=== PATIENT | male | born 1985 | race African-American/Black ===

== ENCOUNTER 2018-02-16 23:33 | Emergency (ER) | payer SELFPAY, OTHER ==
[2018-02-17] MEDS: CYCLOBENZAPRINE 10 MG TABLET. PO (00:29)
[2018-02-17] MEDS: HYDROcodone/APAP 5/325MG 1 TAB TABLET PO (00:29)
[2018-02-17] MEDS: DIPHTH,PERTUSS(ACELL),TET TOX 0.5 ML DISP.SYRIN. VAX IM (00:30)
== END 2018-02-17 00:54 | disposition home or self-care (01) ==
LOC: ER 02-17 00:54
DX: S60.031A Contusion of right middle finger without damage to nail, initial encounter (principal); S60.041A Contusion of right ring finger without damage to nail, initial encounter; J45.909 Unspecified asthma, uncomplicated; Z88.0 Allergy status to penicillin; Z88.8 Allergy status to other drugs, medicaments and biological substances; Z88.6 Allergy status to analgesic agent; V29.9XXA Motorcycle rider (driver) (passenger) injured in unspecified traffic accident, initial encounter; Y93.55 Activity, bike riding; Y92.89 Other specified places as the place of occurrence of the external cause; Y99.8 Other external cause status
CPT/HCPCS: 73090; 73130; 90471; 90715; 99284

== ENCOUNTER 2018-09-15 22:50 | Emergency (ER) | payer SELFPAY ==
[~2018-09-15] VITALS: Ht 180.3 cm; Wt 116.6 kg
[~2018-09-15 22:50] MED LIST: ACET-704 PO; BACI3.5O8 OP; CYCL10TA2 PO; METH4TAB2 PO
[2018-09-15 23:05] VITALS: BP 139/94
--- NOTE | 2018-09-15 23:14 | PHYS DOC ---
Past Medical History Past Medical History: Asthma Additional Past Medical Histor: PTSD Past Surgical History: No Surgical History Smoking: Cigarettes Alcohol Use: None Drug Use: Marijuana Adult General Chief Complaint Chief Complaint: ASTHMA HPI HPI Patient is a 33 year old male who presents with chief breathing. This started approximately 2000 tonight. Patient was exposed to MACE. Patient has a history of asthma and is out of his albuterol and Atrovent nebulizer solution. Patient is able to calm himself down however when he coughs, the difficulty breathing gets significantly worse. Patient denies any fever. He also notes that he hit his face/lip in a door on the way out and has some swelling discomfort. There was some bleeding. The bleeding has subsequently been controlled with pressure. No loss of consciousness. Teeth feel like they come together normally. Severity of the 2 symptoms is moderate.[] Review of Systems Review of Systems Constitutional: Denies fever or chills [] Eyes: Denies change in visual acuity, redness, or eye pain [] HENT: Denies nasal congestion or sore throat [] Respiratory: See history of present illness[] Cardiovascular: No chest pain or palpitations[] GI: Denies abdominal pain, nausea, vomiting, bloody stools or diarrhea [] : Denies dysuria or hematuria [] Musculoskeletal: Denies back pain or joint pain [] Integument: Denies rash or skin lesions [] Neurologic: Denies headache, focal weakness or sensory changes [] Endocrine: Denies polyuria or polydipsia [] All other systems were reviewed and found to be within normal limits, except as documented in this note. Current Medications Current Medications Current Medications Medications (Trade) Dose Ordered Sig/Reva Start Time Stop Time Status Last Admin Dose Admin Albuterol Sulfate (Ventolin Neb Soln) 2.5 mg 1X ONCE 09/15/18 23:30 09/15/18 23:31 DC Albuterol/ Ipratropium (Duoneb) 3 ml 1X ONCE 09/15/18 23:30 09/15/18 23:31 DC Prednisone (Prednisone) 50 mg 1X ONCE 09/15/18 23:30 09/15/18 23:31 DC 09/15/18 23:18 50 MG Allergies Allergies Allergies Coded Allergies Type Severity Reaction Last Updated Verified Penicillins Allergy Intermediate 02/16/18 Yes ibuprofen Allergy Intermediate 02/16/18 Yes metformin Allergy Intermediate 02/16/18 Yes Physical Exam Physical Exam Constitutional: Well developed, well nourished, mild distress, non-toxic appearance. [] HENT: Normocephalic, patient has swelling in the buccal surface of his lower lip region around tooth #24. The wound is less than 0.5 cm. There is no gapping. No foreign body identified. Bleeding is well controlled. bilateral external ears normal, oropharynx moist, no oral exudates, nose normal. [] Eyes: PERRLA, EOMI, conjunctiva normal, no discharge. [] Neck: Normal range of motion, no tenderness, supple, no stridor. [] Cardiovascular:Heart rate regular rhythm, no murmur [] Lungs & Thorax: Bilateral breath sounds have expiratory wheezes. Good air flow.[ ] Abdomen: Bowel sounds normal, soft, no tenderness, no masses, no pulsatile masses. [] Skin: Warm, dry, no erythema, no rash. [] Back: No tenderness, no CVA tenderness. [] Extremities: No tenderness, no cyanosis, no clubbing, ROM intact, no edema. [] Neurologic: Alert and oriented X 3, normal motor function, normal sensory function, no focal deficits noted. [] Psychologic: Affect normal, judgement normal, mood normal. [] Current Patient Data Vital Signs Vital Signs Date Time Temp Pulse Resp B/P (MAP) Pulse Ox O2 Delivery O2 Flow Rate FiO2 09/15/18 23:07 100 Room Air 09/15/18 23:05 97.3 126 28 139/94 (109) 97.3 EKG EKG [] Radiology/Procedures Radiology/Procedures [] Course & Med Decision Making Course & Med Decision Making Pertinent Labs and Imaging studies reviewed. (See chart for details) Medical decision making: Patient does not appear to have a suturable wound inside his lower lip. Local wound care will be explained to the patient. Patient appears to have reactive airway issue in response to exposure to the chemical irritant. There is no evidence of hypoxia. Treating this with breathing treatments as well as steroids to address the inflammatory process. ED course: Patient arrived, was placed in bed, in tolerated exam well. Patient received nebulizer treatments which decreased his work of breathing, decreased his wheezes, and patient was feeling better afterwards. Patient was discharged in improved condition.[] Dragon Disclaimer Dragon Disclaimer This electronic medical record was generated, in whole or in part, using a voice recognition dictation system. Departure Departure Impression: Primary Impression: Reactive airway disease Disposition: HOME, SELF-CARE Condition: IMPROVED Referrals: NO PCP (PCP) Patient Instructions: Asthma, Adult Additional Instructions: Follow-up with your regular doctor in 2 days. If you do not have regular doctor , list of local clinics will be provided for you. Return to the ER if worsening difficulty breathing or any other concerns. Scripts Prednisone (PREDNISONE) 50 Mg Tablet 50 MG PO DAILY for 7 Days, #7 TAB Prov: JUANA SEGURA DO 09/15/18 Albuterol Sulfate (VENTOLIN HFA INHALER) 18 Gm Hfa.aer.ad 2 PUFF INH Q4HRS for FOR ASTHMA, #1 INHALER 0 Refills Prov: JUANA SEGURA DO 09/15/18 Problem Qualifiers Primary Impression: Reactive airway disease Asthma severity: unspecified severity Asthma persistence: unspecified Asthma complication type: with acute exacerbation Qualified Codes: J45.901 - Unspecified asthma with (acute) exacerbation JUANA SEGURA DO Sep 15, 2018 23:14
[2018-09-15] MEDS ORDERED: predniSONE 20 MG TABLET PO ONE (23:30)
[2018-09-15] MEDS ORDERED: ALBUTEROL SULFATE 2.5 MG/3 ML NEBU. NEB ONE (23:30)
[2018-09-15] MEDS ORDERED: IPRATRPIUM/ALBUTEROL 0.5/2.5MG 3 ML NEBU. NEB ONE (23:30)
[2018-09-15] MEDS ORDERED: VENTOLIN HFA18 GM INH (23:43)
[2018-09-15] MEDS ORDERED: PRED50TA PO (23:43)
== END 2018-09-15 23:55 | disposition home or self-care (01) ==
LOC: ER 22:50
DX: J45.901 Unspecified asthma with (acute) exacerbation (principal); F17.210 Nicotine dependence, cigarettes, uncomplicated; Z88.0 Allergy status to penicillin; Z88.6 Allergy status to analgesic agent; Z88.8 Allergy status to other drugs, medicaments and biological substances
CPT/HCPCS: 94640; 99283; J7512

== ENCOUNTER 2018-12-03 08:37 | Emergency (ER) | payer SELFPAY ==
[~2018-12-03] VITALS: Ht 180.3 cm; Wt 99.8 kg
[~2018-12-03 08:37] MED LIST changes: +PRED50TA PO; +VENTOLIN HFA18 GM INH
[2018-12-03] MEDS ORDERED: ONDANSETRON PF 4 MG/2 ML VIAL. IV ONE (09:00)
[2018-12-03] MEDS ORDERED: IV NORMAL SALINE 1000ML BAG 1,000 ML IV SCH (09:00)
[2018-12-03 09:25] LABS: BARBITURATES NEG (NEG); BENZODIAZEPINES NEG (NEG); CANNABINOIDS POS (NEG); COCAINE POS (NEG); METHADONE NEG (NEG); OPIATES NEG (NEG); PHENCYCLIDINE NEG (NEG)
[2018-12-03 09:35] LABS: AMPHETAMINE/METHAMPHETAMINE NEG (NEG)
[2018-12-03 09:43] LABS: BILIRUBIN,URINE NEGATIVE (NEG); CLARITY,URINE CLEAR; COLOR,URINE YELLOW; NITRITE,URINE NEGATIVE (NEG); PROTEIN,URINE NEGATIVE (NEG-TRACE)
[2018-12-03 09:50] LABS: BACTERIA,URINE 0 /HPF (0-FEW); RBC,URINE 0 /HPF (0-2)
[2018-12-03 09:56] LABS: CALCIUM 8.9 mg/dL (8.5-10.1); GFR 105.5; POTASSIUM 3.3 mmol/L (3.5-5.1)
[2018-12-03 09:59] LABS: ACETAMIN < 2.0 mcg/ml (10-30); ETHANOL < 10 mg/dL (0-10); SALIC 3.3 mg/dL (2.8-20.0)
[2018-12-03 10:02] LABS: ALBUMIN 3.6 g/dL (3.4-5.0); DIRECT BILIRUBIN 0.1 mg/dL (0.0-0.2); TOTAL BILIRUBIN 0.4 mg/dL (0.2-1.0)
--- NOTE | 2018-12-03 10:13 | PHYS DOC ---
Past Medical History Past Medical History: Anxiety, Asthma, Bipolar, Hypertension Additional Past Medical Histor: PTSD Past Surgical History: No Surgical History Smoking: Cigarettes Alcohol Use: Occasionally Drug Use: Marijuana Adult General Chief Complaint Chief Complaint: SUBSTANCE ABUSE HPI HPI Patient is a 33 year old male who presents with possible poisoning. Patient states he was at his uncle home yesterday and had a couple shots of beer and tequila like his usual but felt different taste in his drink and thought there was something in his drink. Patient states he vomited and then woke up this morning instead of his car and his significant other 14 that he was hallucinating and talking about his sister and was not able to get out of the car and go to the house. Patient states he feels nausea and headache and not like his usual time after drinking alcohol with concern for having some drug in his drink. Patient is alert and oriented and denies hallucination and suicidal and homicidal ideation. Review of Systems Review of Systems Constitutional: Denies fever or chills [] Eyes: Denies change in visual acuity, redness, or eye pain [] HENT: Denies nasal congestion or sore throat [] Respiratory: Denies cough or shortness of breath [] Cardiovascular: No additional information not addressed in HPI [] GI: Denies abdominal pain, nausea, vomiting, bloody stools or diarrhea [] : Denies dysuria or hematuria [] Musculoskeletal: Denies back pain or joint pain [] Integument: Denies rash or skin lesions [] Neurologic: Denies headache, focal weakness or sensory changes [] Endocrine: Denies polyuria or polydipsia [] All other systems were reviewed and found to be within normal limits, except as documented in this note. Current Medications Current Medications Current Medications Medications (Trade) Dose Ordered Sig/Reva Start Time Stop Time Status Last Admin Dose Admin Ondansetron HCl (Zofran) 4 mg 1X ONCE 12/03/18 09:00 12/03/18 09:04 DC 12/03/18 09:09 4 MG Potassium Chloride (Klor-Con) 40 meq 1X ONCE 12/03/18 10:15 12/03/18 10:16 DC 12/03/18 10:50 40 MEQ Sodium Chloride 1,000 ml @ 1,000 mls/hr Q1H 12/03/18 09:00 12/03/18 09:59 DC 12/03/18 09:06 1,000 MLS/HR Allergies Allergies Allergies Coded Allergies Type Severity Reaction Last Updated Verified Penicillins Allergy Intermediate 02/16/18 Yes ibuprofen Allergy Intermediate 02/16/18 Yes metformin Allergy Intermediate 02/16/18 Yes Physical Exam Physical Exam Constitutional: Well nourished, mild distress, non-toxic appearance. [] HENT: Normocephalic, atraumatic, oropharynx moist. Eyes: PERRLA, EOMI, conjunctiva normal, no discharge. [] Neck: Normal range of motion, no tenderness, supple, no stridor. [] Cardiovascular:Heart rate regular rhythm, no murmur [] Lungs & Thorax: Bilateral breath sounds clear to auscultation [] Abdomen: Bowel sounds normal, soft, no tenderness, no masses, no pulsatile masses. [] Skin: Warm, dry, no erythema, no rash. [] Back: No tenderness, no CVA tenderness. [] Extremities: No tenderness, no cyanosis, no clubbing, ROM intact, no edema. [] Neurologic: Alert and oriented X 3, normal motor function, normal sensory function, no focal deficits noted. [] Psychologic: Affect anxious, judgement normal, mood normal. [] Current Patient Data Vital Signs Vital Signs Date Time Temp Pulse Resp B/P (MAP) Pulse Ox O2 Delivery O2 Flow Rate FiO2 12/03/18 10:30 80 16 126/78 (94) 95 Room Air 12/03/18 08:42 98.4 98.4 Lab Values Laboratory Tests Test 12/03/18 08:48 12/03/18 09:07 Urine Collection Type Unknown Urine Color Yellow Urine Clarity Clear Urine pH 7.0 Urine Specific [place] 1.025 Urine Protein Negative mg/dL (NEG-TRACE) Urine Glucose (UA) Negative mg/dL (NEG) Urine Ketones (Stick) Negative mg/dL (NEG) Urine Blood Negative (NEG) Urine Nitrite Negative (NEG) Urine Bilirubin Negative (NEG) Urine Urobilinogen Dipstick 2.0 mg/dL (0.2 mg/dL) Urine Leukocyte Esterase Negative (NEG) Urine RBC 0 /HPF (0-2) Urine WBC 1-4 /HPF (0-4) Urine Squamous Epithelial Cells None /LPF Urine Bacteria 0 /HPF (0-FEW) Urine Mucus Marked /LPF Urine Opiates Screen Neg (NEG) Urine Methadone Screen Neg (NEG) Urine Barbiturates Neg (NEG) Urine Phencyclidine Screen Neg (NEG) Urine Amphetamine/Methamphetamine Neg (NEG) Urine Benzodiazepines Screen Neg (NEG) Urine Cocaine Screen Pos (NEG) Urine Cannabinoids Screen Pos (NEG) Urine Ethyl Alcohol Pos (NEG) White Blood Count 5.1 x10^3/uL (4.0-11.0) Red Blood Count 4.16 x10^6/uL (4.30-5.70) L Hemoglobin 13.2 g/dL (13.0-17.5) Hematocrit 39.6 % (39.0-53.0) Mean Corpuscular Volume 95 fL (79-100) Mean Corpuscular Hemoglobin 32 pg (25-35) Mean Corpuscular Hemoglobin Concent 33 g/dL (31-37) Red Cell Distribution Width 13.0 % (11.5-14.5) Platelet Count 173 x10^3/uL (140-400) Neutrophils (%) (Auto) 62 % (31-73) Lymphocytes (%) (Auto) 29 % (24-48) Monocytes (%) (Auto) 8 % (0-9) Eosinophils (%) (Auto) 0 % (0-3) Basophils (%) (Auto) 0 % (0-3) Neutrophils # (Auto) 3.2 x10^3uL (1.8-7.7) Lymphocytes # (Auto) 1.4 x10^3/uL (1.0-4.8) Monocytes # (Auto) 0.4 x10^3/uL (0.0-1.1) Eosinophils # (Auto) 0.0 x10^3/uL (0.0-0.7) Basophils # (Auto) 0.0 x10^3/uL (0.0-0.2) Sodium Level 139 mmol/L (136-145) Potassium Level 3.3 mmol/L (3.5-5.1) L Chloride Level 102 mmol/L (98-107) Carbon Dioxide Level 25 mmol/L (21-32) Anion Gap 12 (6-14) Blood Urea Nitrogen 10 mg/dL (8-26) Creatinine 1.0 mg/dL (0.7-1.3) Estimated GFR (Cockcroft-Gault) 105.5 Glucose Level 111 mg/dL (70-99) H Calcium Level 8.9 mg/dL (8.5-10.1) Magnesium Level 2.0 mg/dL (1.8-2.4) Total Bilirubin 0.4 mg/dL (0.2-1.0) Direct Bilirubin 0.1 mg/dL (0.0-0.2) Aspartate Amino Transferase (AST) 24 U/L (15-37) Alanine Aminotransferase (ALT) 30 U/L (16-63) Alkaline Phosphatase 69 U/L (46-116) Total Protein 7.0 g/dL (6.4-8.2) Albumin 3.6 g/dL (3.4-5.0) Salicylates Level 3.3 mg/dL (2.8-20.0) Salicylate Last Dose Date Unknown Salicylate Last Dose Time Unknown Acetaminophen Level < 2.0 mcg/ml (10-30) L Acetaminophen Last Dose Date Unknown Acetaminophen Last Dose Time Unknown Ethyl Alcohol Level < 10 mg/dL (0-10) Laboratory Tests 12/03/18 09:07 Laboratory Tests 12/03/18 09:07 EKG EKG [] Radiology/Procedures Radiology/Procedures [] Course & Med Decision Making Course & Med Decision Making Pertinent Labs reviewed. (See chart for details) Evaluation of patient in ER showed 33-year-old male patient presented to ER with concern of drug in his alcoholic drink last night. UDS showed marijuana and cocaine. Patient was advised about test results and needs to avoid of using drugs and alcohol. I've spoken with the patient and/or caregivers. I've explained the patient's condition, diagnosis and treatment plan based on information available to me at this time. I've answered the patient's and/or caregivers questions and addressed any concerns. The patient and/or caregivers have a good understanding the patient's diagnosis, condition and treatment plan as can be expected at this point. Vital signs have been stabilized. The patient's condition is stable for discharge from the emergency department. The patient will pursue further outpatient evaluation with her primary care provider or other designated consulting physician as outlined in the discharge instructions. Patient and/or caregivers are agreeable to this plan of care and follow-up instructions have been explained in detail. The patient and/or caregivers have received these instructions in written format and expressed understanding of these discharge instructions. The patient and her caregivers are aware that if any significant change in condition or worsening of symptoms should prompt him to immediately return to this of the closest emergency department. If an emergent department is not readily available I would encourage him to call 911. Esvin Disclaimer Esvin Disclaimer This electronic medical record was generated, in whole or in part, using a voice recognition dictation system. Departure Departure Impression: Primary Impression: Substance abuse Additional Impressions: Nausea and vomiting Tobacco abuse Tobacco abuse counseling Disposition: HOME, SELF-CARE (1040) Condition: IMPROVED Referrals: NO PCP (PCP) Patient Instructions: Alcohol Intoxication, Smoking Cessation, Tips For Success , Substance Abuse-Brief Additional Instructions: Drink plenty of liquids Follow-up with your primary care physician in 3-5 days Return to ER if not getting better Scripts Ondansetron Hcl (ZOFRAN) 4 Mg Tablet 1 TAB PO PRN Q6-8HRS for nausea, #12 TAB Prov: ZAFAR CAPPS MD 12/03/18 Problem Qualifiers Additional Impressions: Nausea and vomiting Vomiting type: unspecified Vomiting Intractability: unspecified Qualified Codes: R11.2 - Nausea with vomiting, unspecified ZAFAR CAPPS MD Dec 03, 2018 10:13
[2018-12-03] MEDS ORDERED: POTASSIUM CHLORIDE 20 MEQ TABLET.ER. PO ONE (10:15)
[2018-12-03 10:30] VITALS: BP 126/78
[2018-12-03] MEDS ORDERED: ONDA4TAB7 PO (10:41)
[2018-12-03 11:06] LABS: BASO % 0 % (0-3); EOS % 0 % (0-3); HEMATOCRIT 39.6 % (39.0-53.0); HEMOGLOBIN 13.2 g/dL (13.0-17.5); LYMPH # 1.4 x10^3/uL (1.0-4.8); LYMPH % 29 % (24-48); MEAN CORPUSCULAR HEMOGLOBIN 32 pg (25-35); MEAN CORPUSCULAR HGB CONC 33 g/dL (31-37); MEAN CORPUSCULAR VOLUME 95 fL (79-100); MONO # 0.4 x10^3/uL (0.0-1.1); MONO % 8 % (0-9); NEUT # 3.2 x10^3uL (1.8-7.7); NEUT % 62 % (31-73); PLATELET COUNT 173 x10^3/uL (140-400); RED BLOOD COUNT 4.16 x10^6/uL (4.30-5.70); WHITE BLOOD COUNT 5.1 x10^3/uL (4.0-11.0)
== END 2018-12-03 10:32 | disposition home or self-care (01) ==
LOC: ER 08:37
DX: F10.10 Alcohol abuse, uncomplicated (principal); Y90.0 Blood alcohol level of less than 20 mg/100 ml; R11.2 Nausea with vomiting, unspecified; R44.3 Hallucinations, unspecified; Z71.6 Tobacco abuse counseling; F17.210 Nicotine dependence, cigarettes, uncomplicated; F41.9 Anxiety disorder, unspecified; J45.909 Unspecified asthma, uncomplicated; F31.9 Bipolar disorder, unspecified; I10 Essential (primary) hypertension; Z88.0 Allergy status to penicillin; Z88.6 Allergy status to analgesic agent; Z88.8 Allergy status to other drugs, medicaments and biological substances
CPT/HCPCS: 36415; 80048; 80076; 80307; 80329; 81001; 83735; 85025; 96361; 96374; 99284; G0480; J2405; J7030

== ENCOUNTER 2018-12-08 10:31 | Emergency (ER) | payer SELFPAY ==
[~2018-12-08] VITALS: Ht 180.3 cm; Wt 102.1 kg
[~2018-12-08 10:31] MED LIST changes: +ONDA4TAB7 PO
[2018-12-08 10:41] VITALS: BP 129/86
--- NOTE | 2018-12-08 10:56 | PHYS DOC ---
Past Medical History Past Medical History: No Pertinent History Additional Past Medical Histor: PTSD Past Surgical History: No Surgical History Alcohol Use: Occasionally Drug Use: Marijuana Adult General Chief Complaint Chief Complaint: HAND PROBLEM HPI HPI Patient is a 33 year old male who presents with left hand injury, patient states he was closing a screen door when the wind blew the door smashing his left hand in between the door frames yesterday. He is right handed. Review of Systems Review of Systems Constitutional: Denies fever or chills [] Musculoskeletal: Reports left hand injury Integument: Denies rash or skin lesions [] Neurologic: Denies headache, focal weakness or sensory changes [] All other systems were reviewed and found to be within normal limits, except as documented in this note. Current Medications Current Medications Current Medications Medications (Trade) Dose Ordered Sig/Reva Start Time Stop Time Status Last Admin Dose Admin Diphtheria/ Tetanus/Acell Pertussis (Boostrix) 0.5 ml ONCE ONCE 12/08/18 11:00 12/08/18 11:01 DC 12/08/18 11:08 0.5 ML Allergies Allergies Allergies Coded Allergies Type Severity Reaction Last Updated Verified Penicillins Allergy Intermediate 02/16/18 Yes ibuprofen Allergy Intermediate 02/16/18 Yes metformin Allergy Intermediate 02/16/18 Yes Physical Exam Physical Exam Constitutional: Well developed, well nourished, no acute distress, non-toxic appearance. [] Skin: Warm, dry, no erythema, no rash. [] Back: No tenderness, no CVA tenderness. [] Extremities: Left dorsal hand at the index finger knuckle with bruising. S welling noted to this region as well as tenderness, full range of motion to the left hand and fingers. Adequate radial, medial, ulnar sensation. +2 left radial pulse. Cap refill less than 2 seconds the left fingers. Neurologic: Alert and oriented X 3, normal motor function, normal sensory function, no focal deficits noted. [] Psychologic: Affect normal, judgement normal, mood normal. [] Current Patient Data Vital Signs Vital Signs Date Time Temp Pulse Resp B/P (MAP) Pulse Ox O2 Delivery O2 Flow Rate FiO2 12/08/18 10:41 98.1 95 16 129/86 (100) 98 Room Air 98.1 EKG EKG [] Radiology/Procedures Radiology/Procedures []PROCEDURE: HAND LEFT 3V LEFT HAND, VIEWS 3 Indication: LEFT HAND PAIN AFTER GETTING CAUGHT IN DOOR X1 DAY AGO Findings: There is no acute fracture or dislocation. Bony articulations are normal. There is no bony erosion. Mineralization is normal. There is no radiographically apparent soft tissue swelling or radiopaque foreign body. IMPRESSION: No acute fracture. Electronically signed by: Alber Martínez MD (12/08/2018 11:10 AM) [id number] DICTATED and SIGNED BY: ALBER MARTÍNEZ MD DATE: 12/08/18 1110 Course & Med Decision Making Course & Med Decision Making Pertinent Labs and Imaging studies reviewed. (See chart for details) This is a 33-year-old male patient presented to the ED today with left hand injury. His left hand got smashed in a screen door frame. Left hand x-rays interpreted by radiologist are negative for any acute findings. Patient was given tetanus vaccine in the ED. Follow-up with orthopedic doctor in one week. Ice elevation encouraged. Pete bandage to the left hand applied by the ED RN, neurovascular exam is intact. Discharged with gabapentin for pain, he is allergic to ibuprofen. He was told he can also take Tylenol. Dragon Disclaimer Dragon Disclaimer This electronic medical record was generated, in whole or in part, using a voice recognition dictation system. Departure Departure Impression: Primary Impression: Contusion of left hand, initial encounter Additional Impression: Bruising Disposition: 01 HOME, SELF-CARE Condition: STABLE Referrals: NO PCP (PCP) TATYANA TAVERAS MD follow up in 1 week Patient Instructions: Contusion, [id number] Additional Instructions: You were seen for left hand contusion, try to ice and elevate the extremity. T isabella the prescribed pain medicine as ordered. Follow-up with your doctor or the provided orthopedic doctor in 1-2 weeks. Wear the Pete bandage provided as tolerated. Scripts Gabapentin (GABAPENTIN ) 300 Mg Capsule 300 MG PO TID for NEUROGENIC PAIN, #15 CAP Prov: STEPHANE JACOB APRN 12/08/18 Problem Qualifiers STEPHANE JACOB APRN Dec 08, 2018 10:56
[2018-12-08] MEDS ORDERED: DIPHTH,PERTUSS(ACELL),TET TOX 0.5 ML DISP.SYRIN. VAX IM ONE (11:00)
--- NOTE | 2018-12-08 11:12 | RAD ---
LEFT HAND, VIEWS 3 Indication: LEFT HAND PAIN AFTER GETTING CAUGHT IN DOOR X1 DAY AGO Findings: There is no acute fracture or dislocation. Bony articulations are normal. There is no bony erosion. Mineralization is normal. There is no radiographically apparent soft tissue swelling or radiopaque foreign body. IMPRESSION: No acute fracture. Electronically signed by: Alber Morris MD (12/08/2018 11:10 AM) [id number]
[2018-12-08] MEDS ORDERED: GABA300C18 PO (11:27)
== END 2018-12-08 11:30 | disposition home or self-care (01) ==
LOC: ER 10:31
DX: S60.222A Contusion of left hand, initial encounter (principal); Z88.0 Allergy status to penicillin; Z88.6 Allergy status to analgesic agent; Z88.8 Allergy status to other drugs, medicaments and biological substances; W23.0XXA Caught, crushed, jammed, or pinched between moving objects, initial encounter; Y93.89 Activity, other specified; Y92.89 Other specified places as the place of occurrence of the external cause; Y99.8 Other external cause status
CPT/HCPCS: 73130; 90471; 90715; 99284

== ENCOUNTER 2019-01-07 15:52 | Emergency (ER) | payer SELFPAY ==
[~2019-01-07] VITALS: Ht 180.3 cm; Wt 108.9 kg
[~2019-01-07 15:52] MED LIST changes: +GABA300C18 PO
[2019-01-07 16:01] VITALS: BP 158/98
--- NOTE | 2019-01-07 16:43 | PHYS DOC ---
Past Medical History Past Medical History: Asthma Additional Past Medical Histor: PTSD Past Surgical History: No Surgical History Smoking: Cigarettes, Less than 1pk/day Alcohol Use: Occasionally Drug Use: Marijuana Adult General Chief Complaint Chief Complaint: KNEE INJURY HPI HPI Patient is a 33 year old who presents with left knee pain started yesterday around noon when he was jumping on the trampoline with his kids. He hurt his knee pop and has been unable to bear weight and had excruciating pain since that time. Also has swelling to the left knee. His pain as 8 out of 10 with a character of throbbing and sharp. Has tried Tylenol at home which is not helping. Review of Systems Review of Systems Constitutional: Denies fever or chills [] Eyes: Denies change in visual acuity, redness, or eye pain [] HENT: Denies nasal congestion or sore throat [] Respiratory: Denies cough or shortness of breath [] Cardiovascular: No additional information not addressed in HPI [] GI: Denies abdominal pain, nausea, vomiting, bloody stools or diarrhea [] : Denies dysuria or hematuria [] Musculoskeletal: Denies back pain or joint pain with exception of L knee. Integument: Denies rash or skin lesions [] Neurologic: Denies headache, focal weakness or sensory changes [] Endocrine: Denies polyuria or polydipsia [] Complete systems were reviewed and found to be within normal limits, except as documented in this note. Current Medications Current Medications Current Medications Medications (Trade) Dose Ordered Sig/Reva Start Time Stop Time Status Last Admin Dose Admin Acetaminophen/ Hydrocodone Bitart (Lortab 5/325) 1 tab 1X ONCE 01/07/19 16:45 01/07/19 16:46 DC 01/07/19 16:47 1 TAB Allergies Allergies Allergies Coded Allergies Type Severity Reaction Last Updated Verified Penicillins Allergy Intermediate 02/16/18 Yes ibuprofen Allergy Intermediate 02/16/18 Yes metformin Allergy Intermediate 02/16/18 Yes Physical Exam Physical Exam Constitutional: Well developed, well nourished, no acute distress, non-toxic appearance. [] HENT: Normocephalic, atraumatic, bilateral external ears normal, oropharynx moist, no oral exudates, nose normal. [] Eyes: PERRLA, EOMI, conjunctiva normal, no discharge. [] Neck: Normal range of motion, no tenderness, supple, no stridor. [] Cardiovascular:Heart rate regular rhythm, no murmur [] Lungs & Thorax: Bilateral breath sounds clear to auscultation [] Abdomen: Bowel sounds normal, soft, no tenderness, no masses, no pulsatile masses. [] Skin: Warm, dry, no erythema, no rash. [] Back: No tenderness, no CVA tenderness. [] Extremities: No tenderness with exception of L knee, no cyanosis, no clubbing, ROM intact, no edema with exception of L knee. Positive anterior drawer test to the L knee. Neurologic: Alert and oriented X 3, normal motor function, normal sensory function, no focal deficits noted. [] Psychologic: Affect normal, judgement normal, mood normal. [] Current Patient Data Vital Signs Vital Signs Date Time Temp Pulse Resp B/P (MAP) Pulse Ox O2 Delivery O2 Flow Rate FiO2 01/07/19 16:47 18 99 Room Air 01/07/19 16:01 98.6 93 158/98 (118) 98.6 EKG EKG [] Radiology/Procedures Radiology/Procedures Preliminary xray read by Dr. Camargo No acute fracture or dislocation.[] PATIENT: KATE BARNES ACCOUNT: [id number] : 1985 LOCATION: ER AGE: 33 SEX: M EXAM STATUS: REG ER ORD. PHYSICIAN: KAIT MELVIN APRN REASON: pain, unable to straighten leg PROCEDURE: CT LOWER EXTREMITY WO LEFT EXAM: CT left knee DATE: 01/07/2019 5:35 PM COMPARISON: No prior INDICATION: Left knee pain, unable to straighten left knee TECHNIQUE: CT of the left knee was performed without IV contrast. Axial coronal and sagittal reformatted images were generated. PQRS compliance statement - One or more of the following individualized dose reduction techniques were utilized for this study: 1. Automated exposure control 2. Adjustment of the mA and/or kV according to patient size 3. Use of iterative reconstruction technique FINDINGS: There is no evidence for acute fracture or dislocation. Borderline lateral patellar tracking. Moderate knee joint effusion without definite lipohemarthrosis. Within the constraints of this CT examination, no obvious ACL, PCL tear. Visualized muscle bulk is grossly normal without fatty atrophy. IMPRESSION: 1. Moderate left knee joint effusion. 2. No evidence of acute fracture or dislocation. Electronically signed by: Chavez Carvajal MD (01/07/2019 6:25 PM) [facility] Course & Med Decision Making Course & Med Decision Making Pertinent Labs and Imaging studies reviewed. (See chart for details) Will get x-ray and give Jolo. I suspect a ligament injury. Will have follow up with ortho. X-ray is negative. Because he is unable to straighten leg and bear weight will get CT to look for tendon injury. CT is negative. Will have put in knee immobilizer and crutches and have follow up with ortho. Dragon Disclaimer Dragon Disclaimer This electronic medical record was generated, in whole or in part, using a voice recognition dictation system. Departure Departure Impression: Primary Impression: Knee pain, left Disposition: 01 HOME, SELF-CARE Condition: STABLE Referrals: NO PCP (PCP) ROMEO MILLER MD Patient Instructions: Knee Pain Additional Instructions: Please follow up with orthopedics for further workup. Use crutches. Take Jolo as directed. Do not take additional Tylenol with Jolo. Scripts Hydrocodone/Apap 5-325 (NORCO 5-325 TABLET) 1 Each Tablet 1 TAB PO PRN Q6HRS PRN for PAIN for 3 Days, #10 TAB 0 Refills Prov: KAIT MELVIN APRN 01/07/19 Problem Qualifiers Primary Impression: Knee pain, left Chronicity: acute Qualified Codes: M25.562 - Pain in left knee KAIT MELVIN APRN January 07, 2019 16:43
[2019-01-07] MEDS ORDERED: HYDROcodone/APAP 5/325MG 1 TAB TABLET PO ONE (16:45)
--- NOTE | 2019-01-07 17:52 | RAD ---
Three-view left knee radiographs 01/07/2019 CLINICAL HISTORY: Left knee pain. AP, lateral and oblique digital radiographs of the left knee were obtained. No fracture or dislocation left knee is seen. There is no radiographic evidence of a joint effusion. No significant degenerative changes are seen. IMPRESSION: No acute osseous abnormality is seen. Electronically signed by: Harvinder Kirkland MD (01/07/2019 5:49 PM) [facility]
--- NOTE | 2019-01-07 18:28 | RAD ---
EXAM: CT left knee DATE: 01/07/2019 5:35 PM COMPARISON: No prior INDICATION: Left knee pain, unable to straighten left knee TECHNIQUE: CT of the left knee was performed without IV contrast. Axial coronal and sagittal reformatted images were generated. PQRS compliance statement - One or more of the following individualized dose reduction techniques were utilized for this study: 1. Automated exposure control 2. Adjustment of the mA and/or kV according to patient size 3. Use of iterative reconstruction technique FINDINGS: There is no evidence for acute fracture or dislocation. Borderline lateral patellar tracking. Moderate knee joint effusion without definite lipohemarthrosis. Within the constraints of this CT examination, no obvious ACL, PCL tear. Visualized muscle bulk is grossly normal without fatty atrophy. IMPRESSION: 1. Moderate left knee joint effusion. 2. No evidence of acute fracture or dislocation. Electronically signed by: Chavez Carvajal MD (01/07/2019 6:25 PM) [facility]
[2019-01-07] MEDS ORDERED: HYDR-3164 PO (18:38)
== END 2019-01-07 19:14 | disposition home or self-care (01) ==
LOC: ER 15:52
DX: M25.562 Pain in left knee (principal); J45.909 Unspecified asthma, uncomplicated; F17.210 Nicotine dependence, cigarettes, uncomplicated; Z88.0 Allergy status to penicillin; Z88.6 Allergy status to analgesic agent; Z88.8 Allergy status to other drugs, medicaments and biological substances
CPT/HCPCS: 29505; 73562; 73700; 99284

== ENCOUNTER 2019-01-10 19:12 | Emergency (ER) | payer SELFPAY ==
[~2019-01-10] VITALS: Ht 180.3 cm; Wt 113.4 kg
[~2019-01-10 19:12] MED LIST changes: +HYDR-3164 PO
[2019-01-10] MEDS ORDERED: KETOROLAC 60 MG/2 ML VIAL. IM ONE (19:45)
[2019-01-10] MEDS ORDERED: CYCLOBENZAPRINE 10 MG TABLET. PO ONE (19:45)
--- NOTE | 2019-01-10 19:53 | PHYS DOC ---
Past Medical History Past Medical History: Asthma Additional Past Medical Histor: PTSD Past Surgical History: No Surgical History Alcohol Use: Occasionally Drug Use: Marijuana Adult General Chief Complaint Chief Complaint: KNEE SWELLING HPI HPI Patient is a 33 year old male presents to the ED complaining of left knee pain that started 4 days ago. Patient states he injured his left knee on the trampoline jumping with kids. Patient states he heard a pop and has been having pain with bearing weight since then. Patient was sent home with pain medication and was to follow-up with orthopedics. Patient states he followed up but did not have his insurance active yet. Says his pain is sharp. Rates his pain as 8 out 10. Imaging showed moderate joint effusion of left knee (XR and CT). Denies new injury, fever, redness, calf pain/swelling, weakness or paresthesias. Review of Systems Review of Systems Constitutional: Denies fever or chills [] Eyes: Denies change in visual acuity, redness, or eye pain [] HENT: Denies nasal congestion or sore throat [] Respiratory: Denies cough or shortness of breath [] Cardiovascular: No additional information not addressed in HPI [] GI: Denies abdominal pain, nausea, vomiting, bloody stools or diarrhea [] : Denies dysuria or hematuria [] Musculoskeletal: Complains of knee pain. Denies back pain. Integument: Denies rash or skin lesions [] Neurologic: Denies headache, focal weakness or sensory changes [] All other systems were reviewed and found to be within normal limits, except as documented in this note. Current Medications Current Medications Current Medications Medications (Trade) Dose Ordered Sig/Reva Start Time Stop Time Status Last Admin Dose Admin Cyclobenzaprine HCl (Flexeril) 5 mg 1X ONCE 01/10/19 19:45 01/10/19 19:52 DC 01/10/19 20:10 5 MG Ketorolac Tromethamine (Toradol Im) 60 mg 1X ONCE 01/10/19 19:45 01/10/19 19:46 UNV Allergies Allergies Allergies Coded Allergies Type Severity Reaction Last Updated Verified Penicillins Allergy Intermediate 02/16/18 Yes ibuprofen Allergy Intermediate 02/16/18 Yes metformin Allergy Intermediate 02/16/18 Yes Physical Exam Physical Exam Constitutional: Well developed, well nourished, no acute distress, non-toxic appearance. [] HENT: Normocephalic, atraumatic Skin: Warm, dry, no erythema, no rash. [] Back: No tenderness, no CVA tenderness. [] Extremities: Mild left anterior knee tenderness/swelling. No warmth, overlying skin changes, cyanosis, or clubbing, ROM intact, no edema. [] Neurologic: Alert and oriented X 3, normal motor function, normal sensory function, no focal deficits noted. [] Psychologic: Affect normal, judgement normal, mood normal. [] Current Patient Data Vital Signs Vital Signs Date Time Temp Pulse Resp B/P (MAP) Pulse Ox O2 Delivery O2 Flow Rate FiO2 01/10/19 19:37 98.0 95 16 155/101 (119) 99 Room Air 98.0 EKG EKG [] Radiology/Procedures Radiology/Procedures [] Course & Med Decision Making Course & Med Decision Making Pertinent Labs and Imaging studies reviewed. (See chart for details) []Patient seeking "strong pain medication." Will prescribe a muscle relaxer outpatient. Patient provided follow-up for orthopedics and contact community resource list.Discussed the importance of follow-up and reasons to return to the ED. At discharge patient able to ambulate without assistance. Patient was offered a knee immobilizer and crutches to remain nonweightbearing but ignored staff and walked out the door. Dragon Disclaimer Dragon Disclaimer This electronic medical record was generated, in whole or in part, using a voice recognition dictation system. Departure Departure Impression: Primary Impression: Knee joint effusion Disposition: 01 HOME, SELF-CARE Condition: IMPROVED Referrals: NO PCP (PCP) VANIA MCLAUGHLIN II, MD Patient Instructions: Knee Effusion Scripts Cyclobenzaprine Hcl (CYCLOBENZAPRINE HCL) 10 Mg Tablet 1 TAB PO TID for 4 Days, #12 TAB Prov: NICKY MO 01/10/19 NICKY MO January 10, 2019 19:53
[2019-01-10] MEDS ORDERED: CYCL10TA2 PO (19:58)
== END 2019-01-10 20:15 | disposition home or self-care (01) ==
LOC: ER 19:12
DX: M25.462 Effusion, left knee (principal); J45.909 Unspecified asthma, uncomplicated; Z88.0 Allergy status to penicillin; Z88.6 Allergy status to analgesic agent; Z88.8 Allergy status to other drugs, medicaments and biological substances
CPT/HCPCS: 99283